=== PATIENT | male | born 1945 | race African-American/Black ===

== ENCOUNTER 2018-12-14 05:52 | Inpatient (IN) ==
[~2018-12-14 05:52] MED LIST: VANCOMYCIN 1,000 MG VIAL ONE
[2018-12-14] MEDS ORDERED: VANCOMYCIN INJ 1,000 MG in SODIUM CHLORIDE 0.9% 250 ML IV ONE (06:30)
[2018-12-14 06:43] LABS: Basophils % 0.2 % (0.0-0.8); Eosinophils # 0.1 10*3/uL (0.0-0.87); Eosinophils % 0.7 % (0.00-10.9); Hematocrit 27.6 VOL% (42.0-52.0); Hemoglobin 8.3 GM/DL (14.0-18.0); Immature Granulocytes Absolute 0.14 #; Lymphocytes # 1.1 10*3/uL (1.4-4.0); Lymphocytes % 8.4 % (21.2-54.2); Mean Corpuscular HGB Conc 30.1 GM/DL (32-36); Mean Corpuscular Hemoglobin 22 PG (27-34); Mean Corpuscular Volume 71.5 FL (87-102); Mean Platelet Volume 8.9 FL (9.6-12.0); Monocytes # 0.7 10*3/uL (0.11-0.8); Monocytes % 5.2 % (1.7-12.7); Neutrophils # 11.3 10*3/uL (1.4-7.4); Neutrophils % 84.5 % (38.7-73.9); Platelet Count 704 T/CUMM (130-400); Red Blood Count 3.86 MC/CUMM (3.8-5.5); Red Cell Distribution Width 16.2 % (9.3-17.3); White Blood Count 13.3 T/CUMM (4-12)
[2018-12-14 07:02] LABS: Calcium 9.5 MG/DL (8.5-10.1); Potassium 3.7 MMOL/L (3.5-5.1)
[2018-12-14] MEDS: LACTATED RINGERS 1,000 ML IV SCH (07:25)
[2018-12-14] MEDS ORDERED: DEXTROSE 50% 25 GM/50 ML VIAL IV PRN (08:57)
[2018-12-14] MEDS ORDERED: GLUCAGON 1 MG VIAL IM PRN (08:57)
[2018-12-14] MEDS ORDERED: ONDANSETRON 4 MG/2 ML VIAL IV PRN (08:57)
[2018-12-14] MEDS ORDERED: PROPOFOL 200 MG/20 ML VIAL IV ONE (09:00)
[2018-12-14] MEDS ORDERED: MIDAZOLAM 2 MG/2 ML VIAL ONE (09:00)
[2018-12-14] MEDS ORDERED: fentaNYL 100 MCG/2 ML VIAL ONE (09:00)
[2018-12-14] MEDS: CYPROHEPTADINE 4 MG TABLET PO SCH ×2 (18:10→21:06)
[2018-12-14] MEDS: VANCOMYCIN INJ 1,000 MG in SODIUM CHLORIDE 0.9% 250 ML IV SCH (21:06)
[2018-12-15] MEDS: ENOXAPARIN 30 MG/0.3 ML SYRINGE SUBCUT SCH ×2 (02:48→15:39)
[2018-12-15] MEDS: VANCOMYCIN INJ 1,000 MG in SODIUM CHLORIDE 0.9% 250 ML IV SCH ×2 (09:09→20:53)
[2018-12-15] MEDS: sulfaSALAzine 500 MG TABLET PO SCH (09:10)
[2018-12-15] MEDS: ALLOPURINOL 100 MG TABLET PO SCH (09:11)
[2018-12-15] MEDS: amLODIPine 10 MG TABLET PO SCH (09:11)
[2018-12-15] MEDS: predniSONE 10 MG TABLET PO SCH (09:12)
[2018-12-15] MEDS: CLOPIDOGREL 75 MG TABLET PO SCH (09:12)
[2018-12-15] MEDS: CHLORTHALIDONE 25 MG TABLET PO SCH (09:12)
[2018-12-15] MEDS: CYPROHEPTADINE 4 MG TABLET PO SCH ×3 (09:12→20:53)
[2018-12-15] MEDS: ASPIRIN EC 81 MG TABLET PO SCH (09:12)
[2018-12-15] MEDS: ATORVASTATIN 20 MG TABLET PO SCH (09:14)
[2018-12-15] MEDS: LACTATED RINGERS 1,000 ML IV SCH (10:11)
[2018-12-15] MEDS: COLLAGENASE OINT 30 GM TUBE TOP SCH (11:20)
[2018-12-16] MEDS: ENOXAPARIN 30 MG/0.3 ML SYRINGE SUBCUT SCH (03:15)
[2018-12-16] MEDS: LACTATED RINGERS 1,000 ML IV SCH (05:50)
[2018-12-16] MEDS: CYPROHEPTADINE 4 MG TABLET PO SCH (08:11)
[2018-12-16] MEDS: VANCOMYCIN INJ 1,000 MG in SODIUM CHLORIDE 0.9% 250 ML IV SCH (08:11)
[2018-12-16] MEDS: CHLORTHALIDONE 25 MG TABLET PO SCH (08:12)
[2018-12-16] MEDS: ALLOPURINOL 100 MG TABLET PO SCH (08:12)
[2018-12-16] MEDS: sulfaSALAzine 500 MG TABLET PO SCH (08:12)
[2018-12-16] MEDS: predniSONE 10 MG TABLET PO SCH (08:12)
[2018-12-16] MEDS: amLODIPine 10 MG TABLET PO SCH (08:12)
[2018-12-16] MEDS: CLOPIDOGREL 75 MG TABLET PO SCH (08:12)
[2018-12-16] MEDS: ASPIRIN EC 81 MG TABLET PO SCH (08:12)
[2018-12-16] MEDS: ATORVASTATIN 20 MG TABLET PO SCH (08:12)
[2018-12-16] MEDS: COLLAGENASE OINT 30 GM TUBE TOP SCH (09:11)
[2018-12-16 11:48] VITALS: BP 153/82
== END 2018-12-16 13:35 | disposition home or self-care (01) | DRG 240 ==
LOC: N.OR 05:52 → N.SDSINP 05:58 → N.3E 09:36
PROVIDERS: ADMIT Surgery; ATTEND Surgery

== ENCOUNTER 2019-01-26 06:38 | Inpatient (IN) ==
[2019-01-25 11:55] LABS: Basophils % 0.2 % (0.0-0.8); Eosinophils # 0.2 10*3/uL (0.0-0.87); Eosinophils % 1.7 % (0.00-10.9); Hematocrit 23.4 VOL% (42.0-52.0); Hemoglobin 6.9 GM/DL (14.0-18.0); Immature Granulocytes % 0.7 %; Immature Granulocytes Absolute 0.06 #; Lymphocytes # 0.8 10*3/uL (1.4-4.0); Lymphocytes % 8.7 % (21.2-54.2); Mean Corpuscular HGB Conc 29.5 GM/DL (32-36); Mean Corpuscular Hemoglobin 20 PG (27-34); Mean Platelet Volume 8.4 FL (9.6-12.0); Monocytes # 1.1 10*3/uL (0.11-0.8); Monocytes % 12.9 % (1.7-12.7); Neutrophils # 6.6 10*3/uL (1.4-7.4); Neutrophils % 75.8 % (38.7-73.9); Platelet Count 610 T/CUMM (130-400); Red Blood Count 3.39 MC/CUMM (3.8-5.5); Red Cell Distribution Width 18.7 % (9.3-17.3); White Blood Count 8.7 T/CUMM (4-12)
[2019-01-25 12:27] LABS: Calcium 9.1 MG/DL (8.5-10.1); Osmolality,Calculated 268.2 MOS/KG (273-304); Potassium 3.3 MMOL/L (3.5-5.1)
[~2019-01-26 06:38] MED LIST changes: +DIAZEPAM 5 MG TABLET PO ONE; +FAMOTIDINE 20 MG TABLET PO ONE; -VANCOMYCIN 1,000 MG VIAL ONE; +VANCOMYCIN INJ 1,000 MG in SODIUM CHLORIDE 0.9% 250 ML IV ONE
[2019-01-26] MEDS ORDERED: SODIUM CHLORIDE 0.9% 1,000 ML IV PRN (06:54)
[2019-01-26] MEDS ORDERED: VANCOMYCIN 1,000 MG VIAL ONE (07:17)
[2019-01-26] MEDS ORDERED: DIAZEPAM 5 MG TABLET ONE (07:17)
[2019-01-26] MEDS ORDERED: FAMOTIDINE 20 MG TABLET ONE (07:17)
[2019-01-26] MEDS ORDERED: LIDOCAINE 1% 20 ML VIAL ONE (09:07)
[2019-01-26] MEDS ORDERED: VANCOMYCIN 500 MG VIAL ONE (09:07)
[2019-01-26] MEDS ORDERED: HYDROmorphone 2 MG/1 ML VIAL IV ONE (10:25)
[2019-01-26] MEDS ORDERED: HYDROmorphone 2 MG/1 ML VIAL IV PRN ×2 (10:31→10:48)
[2019-01-26] MEDS ORDERED: ONDANSETRON 4 MG/2 ML VIAL IV PRN ×2 (10:31→10:40)
[2019-01-26] MEDS: HYDROmorphone 2 MG/1 ML VIAL IV PRN ×4 (10:42→10:57)
[2019-01-26] MEDS ORDERED: SEVOFLURANE 1 UNIT/15 MINUTE INH ONE (10:43)
[2019-01-26] MEDS ORDERED: fentaNYL 100 MCG/2 ML VIAL ONE (10:43)
[2019-01-26] MEDS ORDERED: PROPOFOL 200 MG/20 ML VIAL IV ONE (10:43)
[2019-01-26] MEDS ORDERED: KETAMINE 500 MG/10 ML VIAL ONE (10:44)
[2019-01-26] MEDS ORDERED: HYDROmorphone 2 MG/1 ML VIAL ONE (11:24)
[2019-01-26] MEDS: oxyCODONE/ACETAMINOPHEN 5-325 MG TABLET PO PRN ×3 (13:17→21:20)
[2019-01-26] MEDS: LACTATED RINGERS 1,000 ML IV SCH (14:46)
[2019-01-26] MEDS: CYPROHEPTADINE 4 MG TABLET PO SCH ×2 (15:17→21:21)
[2019-01-27] MEDS: ENOXAPARIN 40 MG/0.4 ML SYRINGE SUBCUT SCH (03:44)
[2019-01-27] MEDS: oxyCODONE/ACETAMINOPHEN 5-325 MG TABLET PO PRN ×3 (03:45→20:41)
[2019-01-27 05:26] LABS: Osmolality,Calculated 270.8 MOS/KG (273-304); Potassium 3.4 MMOL/L (3.5-5.1)
[2019-01-27 05:41] LABS: Basophils % 0.2 % (0.0-0.8); Eosinophils # 0.5 10*3/uL (0.0-0.87); Eosinophils % 6.1 % (0.00-10.9); Hematocrit 32.4 VOL% (42.0-52.0); Hemoglobin 9.9 GM/DL (14.0-18.0); Immature Granulocytes % 0.5 %; Immature Granulocytes Absolute 0.04 #; Lymphocytes # 0.6 10*3/uL (1.4-4.0); Lymphocytes % 7.4 % (21.2-54.2); Mean Corpuscular HGB Conc 30.6 GM/DL (32-36); Mean Corpuscular Hemoglobin 23 PG (27-34); Mean Corpuscular Volume 74.8 FL (87-102); Mean Platelet Volume 8.3 FL (9.6-12.0); Monocytes # 0.8 10*3/uL (0.11-0.8); Monocytes % 9.2 % (1.7-12.7); Neutrophils # 6.6 10*3/uL (1.4-7.4); Neutrophils % 76.6 % (38.7-73.9); Platelet Count 551 T/CUMM (130-400); Red Blood Count 4.33 MC/CUMM (3.8-5.5); Red Cell Distribution Width 21.4 % (9.3-17.3); White Blood Count 8.6 T/CUMM (4-12)
[2019-01-27] MEDS: CLOPIDOGREL 75 MG TABLET PO SCH (08:40)
[2019-01-27] MEDS: ALLOPURINOL 100 MG TABLET PO SCH (08:41)
[2019-01-27] MEDS: amLODIPine 10 MG TABLET PO SCH (08:41)
[2019-01-27] MEDS: ATORVASTATIN 20 MG TABLET PO SCH (08:41)
[2019-01-27] MEDS: CYPROHEPTADINE 4 MG TABLET PO SCH ×3 (08:41→20:40)
[2019-01-27] MEDS: ASPIRIN EC 81 MG TABLET PO SCH (08:41)
[2019-01-27] MEDS: sulfaSALAzine 500 MG TABLET PO SCH (08:41)
[2019-01-27] MEDS: CHLORTHALIDONE 25 MG TABLET PO SCH (08:41)
[2019-01-27] MEDS: CILOSTAZOL 100 MG TABLET PO SCH ×2 (09:43→20:41)
[2019-01-27] MEDS: LACTATED RINGERS 1,000 ML IV SCH (10:24)
[2019-01-27 11:42] LABS: % Iron Saturation 8.7 % (18-50); Ferritin 62.4 ng/ml (26-388)
[2019-01-27 12:15] LABS: Folate 21.1 NG/ML (5.4-24.0)
[2019-01-27] MEDS: HYDROmorphone 2 MG/1 ML VIAL IV PRN (13:15)
[2019-01-28] MEDS: oxyCODONE/ACETAMINOPHEN 5-325 MG TABLET PO PRN ×3 (03:48→21:37)
[2019-01-28] MEDS: ENOXAPARIN 40 MG/0.4 ML SYRINGE SUBCUT SCH (03:49)
[2019-01-28 07:32] LABS: Basophils % 0.2 % (0.0-0.8); Eosinophils # 0.3 10*3/uL (0.0-0.87); Eosinophils % 2.8 % (0.00-10.9); Hematocrit 30.4 VOL% (42.0-52.0); Hemoglobin 9.4 GM/DL (14.0-18.0); Immature Granulocytes % 0.5 %; Immature Granulocytes Absolute 0.06 #; Lymphocytes # 1.1 10*3/uL (1.4-4.0); Lymphocytes % 8.9 % (21.2-54.2); Mean Corpuscular HGB Conc 30.9 GM/DL (32-36); Mean Corpuscular Hemoglobin 23 PG (27-34); Mean Corpuscular Volume 72.9 FL (87-102); Mean Platelet Volume 8.5 FL (9.6-12.0); Monocytes # 1.1 10*3/uL (0.11-0.8); Neutrophils # 9.7 10*3/uL (1.4-7.4); Neutrophils % 78.6 % (38.7-73.9); Platelet Count 528 T/CUMM (130-400); Red Blood Count 4.17 MC/CUMM (3.8-5.5); Red Cell Distribution Width 21.7 % (9.3-17.3); White Blood Count 12.3 T/CUMM (4-12)
[2019-01-28 07:52] LABS: Calcium 8.7 MG/DL (8.5-10.1); Osmolality,Calculated 264.4 MOS/KG (273-304); Potassium 3.4 MMOL/L (3.5-5.1)
[2019-01-28] MEDS: CYPROHEPTADINE 4 MG TABLET PO SCH ×3 (08:55→21:36)
[2019-01-28] MEDS: ATORVASTATIN 20 MG TABLET PO SCH (08:55)
[2019-01-28] MEDS: ALLOPURINOL 100 MG TABLET PO SCH (08:55)
[2019-01-28] MEDS: FERROUS SULFATE 325 MG TABLET PO SCH ×3 (08:55→21:37)
[2019-01-28] MEDS: CILOSTAZOL 100 MG TABLET PO SCH ×2 (08:55→21:36)
[2019-01-28] MEDS: CHLORTHALIDONE 25 MG TABLET PO SCH (08:55)
[2019-01-28] MEDS: ASPIRIN EC 81 MG TABLET PO SCH (08:55)
[2019-01-28] MEDS: CLOPIDOGREL 75 MG TABLET PO SCH (08:56)
[2019-01-28] MEDS: amLODIPine 10 MG TABLET PO SCH (08:58)
[2019-01-28] MEDS ORDERED: POTASSIUM CHLORIDE 20 MEQ TABLET PO ONE (09:59)
[2019-01-28] MEDS: sulfaSALAzine 500 MG TABLET PO SCH (10:16)
[2019-01-28] MEDS: CIPROFLOXACIN INJ 400 MG in PREMIX 1 EACH IV SCH ×2 (12:33→23:19)
[2019-01-28] MEDS: ACETAMINOPHEN 325 MG TABLET PO PRN (14:56)
[2019-01-29] MEDS: ENOXAPARIN 40 MG/0.4 ML SYRINGE SUBCUT SCH (05:09)
[2019-01-29 05:48] LABS: Albumin 2.6 G/DL (3.4-5.0); Calcium 8.7 MG/DL (8.5-10.1); Osmolality,Calculated 257.9 MOS/KG (273-304); Potassium 3.8 MMOL/L (3.5-5.1)
[2019-01-29] MEDS: ALLOPURINOL 100 MG TABLET PO SCH (08:20)
[2019-01-29] MEDS: CILOSTAZOL 100 MG TABLET PO SCH ×2 (08:20→21:17)
[2019-01-29] MEDS: CHLORTHALIDONE 25 MG TABLET PO SCH (08:20)
[2019-01-29] MEDS: CYPROHEPTADINE 4 MG TABLET PO SCH ×3 (08:20→21:17)
[2019-01-29] MEDS: FERROUS SULFATE 325 MG TABLET PO SCH ×3 (08:20→21:17)
[2019-01-29] MEDS: ASPIRIN EC 81 MG TABLET PO SCH (08:20)
[2019-01-29] MEDS: sulfaSALAzine 500 MG TABLET PO SCH (08:20)
[2019-01-29] MEDS: ATORVASTATIN 20 MG TABLET PO SCH (08:20)
[2019-01-29] MEDS: amLODIPine 10 MG TABLET PO SCH (08:20)
[2019-01-29] MEDS: CLOPIDOGREL 75 MG TABLET PO SCH (08:20)
[2019-01-29] MEDS: CIPROFLOXACIN INJ 400 MG in PREMIX 1 EACH IV SCH ×2 (12:43→23:16)
[2019-01-30] MEDS: ENOXAPARIN 40 MG/0.4 ML SYRINGE SUBCUT SCH (04:23)
[2019-01-30] MEDS: FERROUS SULFATE 325 MG TABLET PO SCH ×3 (09:11→21:13)
[2019-01-30] MEDS: ASPIRIN EC 81 MG TABLET PO SCH (09:11)
[2019-01-30] MEDS: ATORVASTATIN 20 MG TABLET PO SCH (09:11)
[2019-01-30] MEDS: amLODIPine 10 MG TABLET PO SCH (09:11)
[2019-01-30] MEDS: sulfaSALAzine 500 MG TABLET PO SCH (09:11)
[2019-01-30] MEDS: CILOSTAZOL 100 MG TABLET PO SCH ×2 (09:11→21:13)
[2019-01-30] MEDS: CLOPIDOGREL 75 MG TABLET PO SCH (09:11)
[2019-01-30] MEDS: CHLORTHALIDONE 25 MG TABLET PO SCH (09:11)
[2019-01-30] MEDS: oxyCODONE/ACETAMINOPHEN 5-325 MG TABLET PO PRN ×2 (09:11→23:55)
[2019-01-30] MEDS: CYPROHEPTADINE 4 MG TABLET PO SCH ×3 (09:11→21:13)
[2019-01-30] MEDS: ALLOPURINOL 100 MG TABLET PO SCH (09:11)
[2019-01-30 11:29] LABS: Total Protein (Chem) 7.4 G/DL (6.4-8.3)
[2019-01-30] MEDS: CIPROFLOXACIN INJ 400 MG in PREMIX 1 EACH IV SCH ×2 (12:08→23:43)
[2019-01-30] MEDS: HYDROmorphone 2 MG/1 ML VIAL IV PRN (15:25)
[2019-01-30] MEDS: ACETAMINOPHEN 325 MG TABLET PO PRN (17:44)
[2019-01-31] MEDS: ENOXAPARIN 40 MG/0.4 ML SYRINGE SUBCUT SCH (04:27)
[2019-01-31 05:52] LABS: Basophils % 0.3 % (0.0-0.8); Eosinophils # 0.1 10*3/uL (0.0-0.87); Eosinophils % 0.9 % (0.00-10.9); Hematocrit 24.1 VOL% (42.0-52.0); Hemoglobin 7.6 GM/DL (14.0-18.0); Immature Granulocytes Absolute 0.12 #; Lymphocytes # 0.7 10*3/uL (1.4-4.0); Lymphocytes % 6.2 % (21.2-54.2); Mean Corpuscular HGB Conc 31.5 GM/DL (32-36); Mean Corpuscular Hemoglobin 23 PG (27-34); Mean Corpuscular Volume 71.3 FL (87-102); Mean Platelet Volume 9.3 FL (9.6-12.0); Monocytes # 2.3 10*3/uL (0.11-0.8); Monocytes % 19.8 % (1.7-12.7); Neutrophils # 8.4 10*3/uL (1.4-7.4); Neutrophils % 71.8 % (38.7-73.9); Platelet Count 532 T/CUMM (130-400); Red Blood Count 3.38 MC/CUMM (3.8-5.5); Red Cell Distribution Width 23.3 % (9.3-17.3); White Blood Count 11.7 T/CUMM (4-12)
[2019-01-31 07:07] LABS: Eosinophils 1 % (0-10); Hypochromasia 1+; Lymphocytes 8 % (20-55); Ovalocytes Slight; Platelet Estimate Increased; Segmented Neutrophils 72 % (50-85); Total Cells Counted 100
[2019-01-31] MEDS: sulfaSALAzine 500 MG TABLET PO SCH (08:05)
[2019-01-31] MEDS: ALLOPURINOL 100 MG TABLET PO SCH (08:05)
[2019-01-31] MEDS: FERROUS SULFATE 325 MG TABLET PO SCH (08:05)
[2019-01-31] MEDS: CYPROHEPTADINE 4 MG TABLET PO SCH (08:05)
[2019-01-31] MEDS: amLODIPine 10 MG TABLET PO SCH (08:05)
[2019-01-31] MEDS: ATORVASTATIN 20 MG TABLET PO SCH (08:05)
[2019-01-31] MEDS: CHLORTHALIDONE 25 MG TABLET PO SCH (08:05)
[2019-01-31] MEDS: CILOSTAZOL 100 MG TABLET PO SCH (08:05)
[2019-01-31] MEDS: oxyCODONE/ACETAMINOPHEN 5-325 MG TABLET PO PRN (08:06)
[2019-01-31] MEDS: ASPIRIN EC 81 MG TABLET PO SCH (08:06)
[2019-01-31] MEDS: CLOPIDOGREL 75 MG TABLET PO SCH (08:06)
[2019-01-31 08:29] LABS: Albumin (SPE) 2.9 G/DL (3.2-5.3); Albumin (SPE) Rel % 39.3 %; Alpha 1 (SPE) 0.5 G/DL (0.1-0.4); Alpha 1 (SPE) Rel % 6.4 %; Alpha 2 (SPE) 1.2 G/DL (0.4-1.0); Alpha 2 (SPE) Rel % 16.8 %; Beta (SPE) 1.2 G/DL (0.5-1.1); Beta (SPE) Rel % 16.6 %; Gamma (SPE) 1.5 G/DL (0.7-1.7); Gamma (SPE) Rel % 20.9 %
[2019-01-31 11:20] VITALS: BP 121/45
[2019-01-31] MEDS: HYDROmorphone 2 MG/1 ML VIAL IV PRN (11:44)
[2019-01-31] MEDS: CIPROFLOXACIN INJ 400 MG in PREMIX 1 EACH IV SCH (11:44)
== END 2019-01-31 16:02 | disposition home health service (06) | DRG 241 ==
LOC: N.OR 06:38 → N.SDSINP 06:38 → N.3E 11:49
PROVIDERS: ADMIT Surgery; ATTEND Surgery

== ENCOUNTER 2019-03-02 10:22 | Observation (INO) ==
[2019-03-02 10:57] LABS: Basophils % 0.3 % (0.0-0.8); Eosinophils # 0.3 10*3/uL (0.0-0.87); Eosinophils % 2.1 % (0.00-10.9); Immature Granulocytes % 0.9 %; Lymphocytes # 1.6 10*3/uL (1.4-4.0); Lymphocytes % 13.5 % (21.2-54.2); Mean Corpuscular HGB Conc 28.9 GM/DL (32-36); Mean Platelet Volume 8.1 FL (9.6-12.0); Monocytes % 9.4 % (1.7-12.7); Neutrophils % 73.8 % (38.7-73.9); Platelet Count 516 T/CUMM (130-400); Red Blood Count 2.64 MC/CUMM (3.8-5.5); Red Cell Distribution Width 24.4 % (9.3-17.3); White Blood Count 11.7 T/CUMM (4-12)
[2019-03-02 11:00] LABS: Hemoglobin 5.5 GM/DL (14.0-18.0)
[2019-03-02] MEDS ORDERED: ACETAMINOPHEN 325 MG TABLET PO PRN (11:11)
[2019-03-02] MEDS ORDERED: DEXTROSE 50% 25 GM/50 ML VIAL IV PRN (11:11)
[2019-03-02] MEDS ORDERED: GLUCAGON 1 MG VIAL IM PRN (11:11)
[2019-03-02] MEDS ORDERED: ONDANSETRON 4 MG/2 ML VIAL IV PRN (11:11)
[2019-03-02] MEDS ORDERED: SODIUM CHLORIDE 0.9% 1,000 ML IV STA (11:14)
[2019-03-02 11:20] LABS: Hypochromasia 2+; Ovalocytes Slight; Platelet Estimate Adequate
[2019-03-02 11:22] LABS: Alanine Aminotransferase 11 U/L (16-61); Albumin 2.7 G/DL (3.4-5.0); Alkaline Phosphatase 69 U/L (45-117); Aspartate Amino Transferase 11 U/L (0-37); Bilirubin,Total < 0.39 MG/DL (0.2-1.0); Blood Urea Nitrogen 13 MG/DL (7-18); Calcium 9.3 MG/DL (8.5-10.1); Glucose 155 MG/DL (74-106); Osmolality,Calculated 270.2 MOS/KG (273-304); Total Protein 7.3 G/DL (6.4-8.3)
[2019-03-02] MEDS: INSULIN REGULAR 100 UNIT/ML SUBCUT SCH ×3 (12:49→22:11)
[2019-03-02] MEDS: SODIUM CHLORIDE 0.45% 1,000 ML IV SCH (12:50)
[2019-03-02] MEDS: CYPROHEPTADINE 4 MG TABLET PO SCH ×2 (15:47→22:09)
[2019-03-02] MEDS: FERROUS SULFATE 325 MG TABLET PO SCH ×2 (15:48→22:09)
[2019-03-02] MEDS: CILOSTAZOL 100 MG TABLET PO SCH (22:09)
[2019-03-02] MEDS: CIPROFLOXACIN 500 MG TABLET PO SCH (22:09)
[2019-03-03 02:37] LABS: Basophils % 0.2 % (0.0-0.8); Eosinophils # 0.1 10*3/uL (0.0-0.87); Eosinophils % 0.7 % (0.00-10.9); Hematocrit 26.7 VOL% (42.0-52.0); Immature Granulocytes % 0.5 %; Immature Granulocytes Absolute 0.05 #; Lymphocytes # 0.3 10*3/uL (1.4-4.0); Lymphocytes % 3.2 % (21.2-54.2); Mean Corpuscular HGB Conc 31.5 GM/DL (32-36); Mean Corpuscular Volume 76.5 FL (87-102); Mean Platelet Volume 7.7 FL (9.6-12.0); Monocytes % 9.7 % (1.7-12.7); Neutrophils % 85.7 % (38.7-73.9); Platelet Count 325 T/CUMM (130-400); Red Blood Count 3.49 MC/CUMM (3.8-5.5); Red Cell Distribution Width 20.5 % (9.3-17.3); White Blood Count 10.6 T/CUMM (4-12)
[2019-03-03 02:39] LABS: Hemoglobin 8.4 GM/DL (14.0-18.0)
[2019-03-03 02:54] LABS: Calcium 8.7 MG/DL (8.5-10.1); Osmolality,Calculated 268.1 MOS/KG (273-304)
[2019-03-03 03:09] LABS: Lymphocytes 3 % (20-55); Segmented Neutrophils 91 % (50-85)
[2019-03-03 03:11] LABS: Platelet Estimate Increased; Polychromasia Few
[2019-03-03 03:12] LABS: Giant Platelets Few; Hypochromasia 1+
[2019-03-03 03:13] LABS: Target Cells Few; Total Cells Counted 100
[2019-03-03 03:14] LABS: Burr Cells Few
[2019-03-03] MEDS: CIPROFLOXACIN 500 MG TABLET PO SCH (08:31)
[2019-03-03] MEDS: FERROUS SULFATE 325 MG TABLET PO SCH (08:31)
[2019-03-03] MEDS: CILOSTAZOL 100 MG TABLET PO SCH (08:32)
[2019-03-03] MEDS: CYPROHEPTADINE 4 MG TABLET PO SCH (08:32)
[2019-03-03] MEDS: INSULIN REGULAR 100 UNIT/ML SUBCUT SCH ×2 (08:33→12:05)
[2019-03-03] MEDS ORDERED: sulfaSALAzine 500 MG TABLET PO SCH (09:00)
[2019-03-03] MEDS ORDERED: ALLOPURINOL 100 MG TABLET PO SCH (09:00)
[2019-03-03] MEDS ORDERED: amLODIPine 10 MG TABLET PO SCH (09:00)
[2019-03-03] MEDS ORDERED: ATORVASTATIN 20 MG TABLET PO SCH (09:00)
[2019-03-03] MEDS ORDERED: ASPIRIN EC 81 MG TABLET PO SCH (09:00)
[2019-03-03] MEDS: SODIUM CHLORIDE 0.45% 1,000 ML IV SCH (10:57)
[2019-03-03 11:24] VITALS: BP 98/62
== END 2019-03-03 12:30 | disposition home or self-care (01) ==
LOC: N.ED 10:22 → N.EDINP 10:22 → N.3E 14:25
PROVIDERS: ADMIT Surgery; ATTEND Surgery

== ENCOUNTER 2019-03-10 14:20 | Inpatient (IN) ==
[2019-03-10] MEDS ORDERED: FUROSEMIDE 100 MG/10 ML VIAL IV STA (14:51)
[2019-03-10 15:15] LABS: Basophils % 0.1 % (0.0-0.8); Eosinophils # 0.1 10*3/uL (0.0-0.87); Eosinophils % 0.6 % (0.00-10.9); Hematocrit 25.1 VOL% (42.0-52.0); Hemoglobin 7.7 GM/DL (14.0-18.0); Immature Granulocytes % 0.9 %; Immature Granulocytes Absolute 0.14 #; Lymphocytes # 0.6 10*3/uL (1.4-4.0); Lymphocytes % 3.5 % (21.2-54.2); Mean Corpuscular HGB Conc 30.7 GM/DL (32-36); Mean Corpuscular Volume 75.4 FL (87-102); Mean Platelet Volume 8.6 FL (9.6-12.0); Monocytes % 9.2 % (1.7-12.7); Neutrophils % 85.7 % (38.7-73.9); Platelet Count 645 T/CUMM (130-400); Red Blood Count 3.33 MC/CUMM (3.8-5.5); Red Cell Distribution Width 23.1 % (9.3-17.3); White Blood Count 16.1 T/CUMM (4-12)
[2019-03-10 15:39] LABS: Alanine Aminotransferase 11 U/L (16-61); Albumin 2.6 G/DL (3.4-5.0); Alkaline Phosphatase 74 U/L (45-117); Aspartate Amino Transferase 16 U/L (0-37); Bilirubin,Total < 0.39 MG/DL (0.2-1.0); Blood Urea Nitrogen 22 MG/DL (7-18); Calcium 8.6 MG/DL (8.5-10.1); Glucose 142 MG/DL (74-106); Osmolality,Calculated 272.2 MOS/KG (273-304); Total Protein 7.3 G/DL (6.4-8.3)
[2019-03-10] MEDS ORDERED: cefTRIAXone 1,000 MG in SODIUM CHLORIDE 0.9% 100 ML IV STA (17:00)
[2019-03-10] MEDS ORDERED: ALBUTEROL 2.5 MG/3 ML NEB RESP TX STA (17:55)
[2019-03-10 18:18] LABS: ABG Base Excess 3.9 MMOL/L (-2.5-2.5); ABG HCO3 27.9 MMOL/L (20-26); ABG Oxygen Saturation 93.5 % (95-100); ABG PCO2 42.3 MM HG (35-48); ABG PH 7.436 (7.35-7.45); ABG TCO2 26.5 MMOL/L (23-27)
[2019-03-10] MEDS ORDERED: ALBUTEROL 2.5 MG/3 ML NEB RESP TX PRN (18:19)
[2019-03-10] MEDS ORDERED: DOCUSATE SODIUM 100 MG CAPSULE PO PRN (18:19)
[2019-03-10] MEDS ORDERED: ONDANSETRON 4 MG/2 ML VIAL IV PRN (18:19)
[2019-03-10] MEDS ORDERED: POTASSIUM CHLORIDE 20 MEQ TABLET PO PRN (18:38)
[2019-03-10 18:51] LABS: Eosinophils 1 % (0-10); Lymphocytes 4 % (20-55); Platelet Estimate Increased; Segmented Neutrophils 87 % (50-85)
[2019-03-10 18:52] LABS: Anisocytosis 2+; Total Cells Counted 100
[2019-03-10 18:53] LABS: Hypochromasia 2+; Poikilocytosis 1+; Polychromasia 1+
[2019-03-10] MEDS: ALBUTEROL/IPRATROPIUM 3 ML NEB RESP TX SCH (19:33)
[2019-03-10] MEDS ORDERED: NOREPINEPHRINE 8 MG in SODIUM CHLORIDE 0.9% 242 ML IV SCH (20:00)
[2019-03-10] MEDS: PIPERACILLIN/TAZOBACTAM 3,375 MG in SODIUM CHLORIDE 0.9% 100 ML IV SCH (20:05)
[2019-03-10] MEDS ORDERED: POTASSIUM CHLORIDE 20 MEQ/15 ML UDCUP PO SCH (21:00)
[2019-03-10] MEDS: POTASSIUM CHLORIDE 20 MEQ/15 ML UDCUP PO SCH (22:23)
[2019-03-11] MEDS: ALBUTEROL/IPRATROPIUM 3 ML NEB RESP TX SCH ×4 (01:24→19:38)
[2019-03-11] MEDS: VANCOMYCIN INJ 750 MG in SODIUM CHLORIDE 0.9% 250 ML IV SCH ×3 (01:37→23:50)
[2019-03-11] MEDS: PIPERACILLIN/TAZOBACTAM 3,375 MG in SODIUM CHLORIDE 0.9% 100 ML IV SCH ×3 (03:19→18:12)
[2019-03-11 04:08] LABS: Basophils % 0.2 % (0.0-0.8); Eosinophils # 0.1 10*3/uL (0.0-0.87); Eosinophils % 0.5 % (0.00-10.9); Hematocrit 23.8 VOL% (42.0-52.0); Hemoglobin 7.2 GM/DL (14.0-18.0); Immature Granulocytes % 0.7 %; Lymphocytes # 0.6 10*3/uL (1.4-4.0); Lymphocytes % 3.9 % (21.2-54.2); Mean Corpuscular HGB Conc 30.3 GM/DL (32-36); Mean Corpuscular Volume 76.8 FL (87-102); Mean Platelet Volume 8.8 FL (9.6-12.0); Monocytes % 11.5 % (1.7-12.7); Neutrophils % 83.2 % (38.7-73.9); Platelet Count 619 T/CUMM (130-400); Red Cell Distribution Width 23.6 % (9.3-17.3); White Blood Count 14.8 T/CUMM (4-12)
[2019-03-11 04:23] LABS: Albumin 2.4 G/DL (3.4-5.0); Bilirubin,Total 0.6 MG/DL (0.2-1.0); Calcium 8.5 MG/DL (8.5-10.1); Osmolality,Calculated 272.2 MOS/KG (273-304); Risk Ratio 1.76; Total Protein 7.3 G/DL (6.4-8.3); VLDL CHOLESTEROL 9.6 MG/DL
[2019-03-11 05:48] LABS: Lymphocytes 5 % (20-55); Segmented Neutrophils 85 % (50-85); Total Cells Counted 100
[2019-03-11 05:49] LABS: Anisocytosis 1+; Hypochromasia 1+; Macrocytosis Slight; Microcytosis 1+
[2019-03-11 05:50] LABS: Platelet Estimate Increased; Polychromasia Few
[2019-03-11] MEDS: PANTOPRAZOLE 40 MG TABLET PO SCH (08:41)
[2019-03-11] MEDS: FUROSEMIDE 40 MG/4 ML VIAL IV SCH ×2 (08:41→16:02)
[2019-03-11] MEDS: ATORVASTATIN 20 MG TABLET PO SCH (08:41)
[2019-03-11] MEDS: POTASSIUM CHLORIDE 20 MEQ/15 ML UDCUP PO SCH ×2 (08:41→20:45)
[2019-03-11] MEDS: methylPREDNISolone SOD SUC 40 MG/1 ML VIAL IV SCH ×2 (13:00→18:09)
[2019-03-11 13:17] LABS: Apearance,Urine CLEAR (Clear); Bilirubin,Urine Negative (Negative); Blood, Urine Negative (Negative); Glucose,Urine (UA) Negative (Negative); Hyaline Casts,Urine 5 /LPF (0-3); Ketones,Urine Negative (Negative); Nitrite,Urine Negative (Negative); Protein,Urine Negative; RBC,Urine 2 /HPF (0-4); Urine Color Yellow (Yellow); Urine Urobilinogen < 2.0 EU/DL (0.2-1.0); WBC,Urine 2 /HPF (0-6)
[2019-03-11] MEDS: AZITHROMYCIN INJ 500 MG in SODIUM CHLORIDE 0.9% 250 ML IV SCH (14:19)
[2019-03-11] MEDS: SODIUM HYPOCHLORITE 0.25% IRRIG 473 ML BOTTLE TOP SCH ×2 (14:48→20:46)
[2019-03-11] MEDS ORDERED: SODIUM CHLORIDE 0.9% 1,000 ML IV PRN (17:53)
[2019-03-11] MEDS ORDERED: FUROSEMIDE 40 MG/4 ML VIAL IV ONE (22:39)
[2019-03-12] MEDS: methylPREDNISolone SOD SUC 40 MG/1 ML VIAL IV SCH ×4 (00:15→20:05)
[2019-03-12] MEDS: ALBUTEROL/IPRATROPIUM 3 ML NEB RESP TX SCH ×4 (01:00→19:57)
[2019-03-12 03:27] LABS: Basophils % 0.1 % (0.0-0.8); Hematocrit 28.5 VOL% (42.0-52.0); Hemoglobin 8.4 GM/DL (14.0-18.0); Immature Granulocytes % 0.8 %; Immature Granulocytes Absolute 0.11 #; Lymphocytes # 0.2 10*3/uL (1.4-4.0); Lymphocytes % 1.6 % (21.2-54.2); Mean Corpuscular HGB Conc 29.5 GM/DL (32-36); Mean Corpuscular Volume 79.4 FL (87-102); Mean Platelet Volume 8.6 FL (9.6-12.0); Monocytes % 0.9 % (1.7-12.7); NRBC # 0.02 10*3/uL; Neutrophils % 96.6 % (38.7-73.9); Platelet Count 691 T/CUMM (130-400); Red Blood Count 3.59 MC/CUMM (3.8-5.5); Red Cell Distribution Width 22.2 % (9.3-17.3)
[2019-03-12 03:50] LABS: Anisocytosis 2+; Hypochromasia 2+; Lymphocytes 1 % (20-55); Macrocytosis 1+; Microcytosis 2+; Ovalocytes 1+; Segmented Neutrophils 98 % (50-85); Target Cells Slight; Total Cells Counted 100
[2019-03-12] MEDS: PIPERACILLIN/TAZOBACTAM 3,375 MG in SODIUM CHLORIDE 0.9% 100 ML IV SCH ×3 (03:50→20:06)
[2019-03-12 03:51] LABS: Acanthocytes 1+; Burr Cells 1+; Platelet Estimate Increased
[2019-03-12 03:56] LABS: Calcium 8.3 MG/DL (8.5-10.1); Osmolality,Calculated 275.5 MOS/KG (273-304)
[2019-03-12] MEDS ORDERED: SODIUM POLYSTYRENE SULFATE 15 GM/60 ML BOTTLE PO ONE ×2 (05:00→19:09)
[2019-03-12] MEDS: ATORVASTATIN 20 MG TABLET PO SCH (08:07)
[2019-03-12] MEDS: PANTOPRAZOLE 40 MG TABLET PO SCH (08:07)
[2019-03-12] MEDS: SODIUM HYPOCHLORITE 0.25% IRRIG 473 ML BOTTLE TOP SCH (08:08)
[2019-03-12] MEDS: SODIUM CHLORIDE 0.9% 1,000 ML IV SCH ×3 (08:10→20:06)
[2019-03-12] MEDS: VANCOMYCIN INJ 750 MG in SODIUM CHLORIDE 0.9% 250 ML IV SCH (11:46)
[2019-03-12] MEDS ORDERED: SODIUM CHLORIDE 0.9% 500 ML IV ONE (13:52)
[2019-03-12] MEDS: AZITHROMYCIN INJ 500 MG in SODIUM CHLORIDE 0.9% 250 ML IV SCH (14:00)
[2019-03-12 14:16] LABS: Apearance,Urine CLOUDY (Clear); Bacteria,Urine Few /HPF (Few); Bilirubin,Urine Negative (Negative); Blood, Urine Negative (Negative); Glucose,Urine (UA) Negative (Negative); Ketones,Urine 5 mg/dL (Negative); Mucus,Urine Occasional /LPF (Occasional); Nitrite,Urine Negative (Negative); Protein,Urine 100 MG/DL; RBC,Urine 14 /HPF (0-4); Squamous Epithelial Cell,Urine Occasional /HPF (0-10); Urine Color Amber (Yellow); Urine Specific Gravity 1.047 (1.001-1.035); Urine Urobilinogen < 2.0 EU/DL (0.2-1.0); WBC,Urine 49 /HPF (0-6)
[2019-03-12] MEDS ORDERED: ETOMIDATE 20 MG/10 ML VIAL IV ONE ×2 (14:54→14:56)
[2019-03-12] MEDS ORDERED: PROPOFOL 1,000 MG/100 ML BOTTLE IV ONE (14:54)
[2019-03-12] MEDS ORDERED: fentaNYL 100 MCG/2 ML VIAL IV ONE (14:56)
[2019-03-12] MEDS ORDERED: PROPOFOL 200 MG/20 ML VIAL IV ONE (14:56)
[2019-03-12] MEDS ORDERED: PROPOFOL 1,000 MG/100 ML BOTTLE IV SCH (15:00)
[2019-03-12] MEDS ORDERED: SUCCINYLCHOLINE 200 MG/10 ML VIAL ONE (15:13)
[2019-03-12] MEDS ORDERED: VECURONIUM 10 MG VIAL IV ONE ×2 (15:27→15:47)
[2019-03-12] MEDS ORDERED: SODIUM CHLORIDE 0.9% 1,000 ML IV ONE ×2 (15:34→18:33)
[2019-03-12] MEDS ORDERED: NOREPINEPHRINE 4 MG/4 ML VIAL IV ONE ×2 (15:36→19:56)
[2019-03-12] MEDS: NOREPINEPHRINE 8 MG in SODIUM CHLORIDE 0.9% 242 ML IV PRN ×2 (15:42→20:47)
[2019-03-12] MEDS ORDERED: ALBUMIN 25% 50 GM in PREMIX 1 EACH IV ONE (15:51)
[2019-03-12 16:53] LABS: Allen Test Positive; Pt O2 Delivery Device Ventilator
[2019-03-12 16:54] LABS: ABG Base Excess -10.8 MMOL/L (-2.5-2.5); ABG HCO3 15.8 MMOL/L (20-26); ABG Oxygen Saturation 99.9 % (95-100); ABG PCO2 39.6 MM HG (35-48); ABG PH 7.221 (7.35-7.45); ABG TCO2 15.5 MMOL/L (23-27)
[2019-03-12] MEDS ORDERED: MIDAZOLAM 100 MG in SODIUM CHLORIDE 0.9% 80 ML IV PRN (18:30)
[2019-03-12] MEDS ORDERED: CALCIUM GLUCONATE 1,000 MG/10 ML VIAL IV ONE (18:37)
[2019-03-12] MEDS ORDERED: SODIUM BICARBONATE 50 MEQ/50 ML VIAL IV ONE ×2 (18:37→18:39)
[2019-03-12] MEDS ORDERED: CALCIUM GLUCONATE 1,000 MG in SODIUM CHLORIDE 0.9% 100 ML IV ONE ×2 (18:38→19:02)
[2019-03-12] MEDS ORDERED: EPINEPHrine 1 MG/ML VIAL ONE (18:44)
[2019-03-12] MEDS ORDERED: DEXTROSE 50% 25 GM/50 ML SYRINGE IV ONE (18:50)
[2019-03-12] MEDS ORDERED: INSULIN REGULAR 100 UNIT/ML ONE (18:50)
[2019-03-12] MEDS ORDERED: INSULIN REGULAR 100 UNIT/ML IV ONE (18:53)
[2019-03-12] MEDS ORDERED: DEXTROSE 50% 25 GM/50 ML SYRINGE IV PRN (18:53)
[2019-03-12 18:55] LABS: Allen Test Positive; Pt O2 Delivery Device Ventilator
[2019-03-12] MEDS ORDERED: HEPARIN/NACL 0.9% 2 UNITS/ML 500 ML IV ONE (18:57)
[2019-03-12] MEDS ORDERED: BUDESONIDE 0.5 MG/2 ML NEB RESP TX SCH (19:00)
[2019-03-12] MEDS ORDERED: EPINEPHrine 1 MG/10 ML SYRINGE IV ONE ×2 (19:01→19:02)
[2019-03-12 19:06] LABS: ABG Base Excess -5.5 MMOL/L (-2.5-2.5); ABG HCO3 19.4 MMOL/L (20-26); ABG Oxygen Saturation 59.4 % (95-100); ABG TCO2 21.7 MMOL/L (23-27)
[2019-03-12 19:07] LABS: Albumin 2.9 G/DL (3.4-5.0); Bilirubin,Total 0.7 MG/DL (0.2-1.0); Calcium 7.1 MG/DL (8.5-10.1); Osmolality,Calculated 277.5 MOS/KG (273-304); Total Protein 7.3 G/DL (6.4-8.3)
[2019-03-12 19:36] LABS: ABG Base Excess -11.1 MMOL/L (-2.5-2.5); ABG HCO3 15.6 MMOL/L (20-26); ABG Oxygen Saturation 99.2 % (95-100); ABG PCO2 49.6 MM HG (35-48); ABG TCO2 16.8 MMOL/L (23-27)
[2019-03-12 19:37] LABS: ABG PH 7.154 (7.35-7.45)
[2019-03-12] MEDS: DEXTROSE 5% IV SCH (19:56)
[2019-03-12] MEDS: SODIUM BICARB IV SCH (19:56)
[2019-03-12] MEDS: BUDESONIDE 0.5 MG/2 ML NEB RESP TX SCH (19:58)
[2019-03-13] MEDS ORDERED: NOREPINEPHRINE 16 MG in SODIUM CHLORIDE 0.9% 234 ML IV PRN (00:04)
[2019-03-13 00:26] LABS: ABG Base Excess -6.4 MMOL/L (-2.5-2.5); ABG HCO3 19.1 MMOL/L (20-26); ABG Oxygen Saturation 99.1 % (95-100); ABG PCO2 55.2 MM HG (35-48); ABG TCO2 20.7 MMOL/L (23-27)
[2019-03-13 00:32] LABS: ABG PH 7.204 (7.35-7.45)
[2019-03-13 00:56] LABS: Albumin 2.7 G/DL (3.4-5.0); Calcium 7.4 MG/DL (8.5-10.1); Osmolality,Calculated 293.7 MOS/KG (273-304)
[2019-03-13] MEDS ORDERED: SODIUM BICARBONATE 50 MEQ/50 ML VIAL IV ONE (01:06)
[2019-03-13] MEDS: SODIUM HYPOCHLORITE 0.25% IRRIG 473 ML BOTTLE TOP SCH ×2 (01:33→10:56)
[2019-03-13] MEDS: methylPREDNISolone SOD SUC 40 MG/1 ML VIAL IV SCH ×2 (01:34→06:02)
[2019-03-13] MEDS: ALBUTEROL/IPRATROPIUM 3 ML NEB RESP TX SCH ×2 (01:39→07:01)
[2019-03-13] MEDS: PIPERACILLIN/TAZOBACTAM 3,375 MG in SODIUM CHLORIDE 0.9% 100 ML IV SCH (03:23)
[2019-03-13] MEDS: DEXTROSE 5% IV SCH (03:31)
[2019-03-13] MEDS: SODIUM BICARB IV SCH (03:31)
[2019-03-13 04:40] LABS: ABG Base Excess -1.9 MMOL/L (-2.5-2.5); ABG HCO3 22.8 MMOL/L (20-26); ABG Oxygen Saturation 94.1 % (95-100); ABG PCO2 54.7 MM HG (35-48); ABG PH 7.273 (7.35-7.45); ABG PO2 83.5 MM HG (80-95)
[2019-03-13 05:02] LABS: Basophils # 0.1 10*3/uL (0.0-0.2); Basophils % 0.2 % (0.0-0.8); Hematocrit 25.7 VOL% (42.0-52.0); Hemoglobin 7.7 GM/DL (14.0-18.0); Immature Granulocytes % 2.9 %; Immature Granulocytes Absolute 0.71 #; Lymphocytes # 0.3 10*3/uL (1.4-4.0); Mean Corpuscular Volume 79.6 FL (87-102); Mean Platelet Volume 9.2 FL (9.6-12.0); Monocytes % 2.5 % (1.7-12.7); NRBC # 0.22 10*3/uL; Neutrophils % 93.4 % (38.7-73.9); Platelet Count 704 T/CUMM (130-400); Red Blood Count 3.23 MC/CUMM (3.8-5.5); Red Cell Distribution Width 22.4 % (9.3-17.3); White Blood Count 24.5 T/CUMM (4-12)
[2019-03-13 05:34] LABS: Hypochromasia 1+; Lymphocytes 2 % (20-55); Microcytosis 1+; Nucleated Red Blood Cells 1 (0-5); Ovalocytes Slight; Platelet Estimate Increased; Segmented Neutrophils 96 % (50-85); Total Cells Counted 100
[2019-03-13 05:59] LABS: Albumin 2.8 G/DL (3.4-5.0); Calcium 7.8 MG/DL (8.5-10.1); Osmolality,Calculated 297.7 MOS/KG (273-304)
[2019-03-13 06:13] LABS: INR 1.2; PT Patient Result 13.4 SECS
[2019-03-13] MEDS: BUDESONIDE 0.5 MG/2 ML NEB RESP TX SCH (07:01)
[2019-03-13] MEDS: NOREPINEPHRINE 8 MG in SODIUM CHLORIDE 0.9% 242 ML IV PRN (07:33)
[2019-03-13 07:34] LABS: Albumin 2.7 G/DL (3.4-5.0)
[2019-03-13] MEDS ORDERED: FAMOTIDINE 20 MG/2 ML VIAL IV SCH (09:00)
[2019-03-13] MEDS ORDERED: MORPHINE 4 MG/1 ML VIAL IV PRN (10:12)
[2019-03-13] MEDS: ATORVASTATIN 20 MG TABLET PO SCH (10:57)
[2019-03-13 11:01] VITALS: BP 105/49
[2019-03-13] MEDS ORDERED: VANCOMYCIN INJ 750 MG in SODIUM CHLORIDE 0.9% 250 ML IV SCH (12:00)
== END 2019-03-13 10:40 | disposition expired | DRG 871 ==
LOC: N.ED 14:20 → SUATTDRO 18:17 → N.EDINP 18:17 → N.ICU 20:15
PROVIDERS: ADMIT Internal Medicine; ATTEND Internal Medicine